=== PATIENT | female | born 1950 ===

== ENCOUNTER 2017-02-21 10:21 | Outpatient (CLI) | payer MEDICARE ==
--- NOTE | 2017-02-21 12:52 | Ultrasound Report ---
BILATERAL DIGITAL DIAGNOSTIC MAMMOGRAM with CAD and LEFT BREAST ULTRASOUND: 02/21/17 10:21:00 CLINICAL: Left breast lump. COMPARISON:[facility] 03/31/15 mammogram. FINDINGS: The breasts are heterogeneously dense, which may obscure small masses.A focal asymmetry with ill-defined margins at 6 o'clock in the left breast correlates with the palpable lump. No distinct mass. No suspicious calcifications. Ultrasound of the left breast was performed in the area of the palpable lump at 6 o'clock 10 cm from the nipple. An oval solid hypoechoic heterogeneous mass measures 2.1 x 1.5 x 0.9 cm. It is appears to arise from the skin in the skin is thickened (5 mm) in the area. Color Doppler demonstrates considerable blood flow within the mass. I examined the breast which shows some skin discoloration at 6 o'clock but no erythema. IMPRESSION: A probably benign sebaceous cyst at 6 o'clock left breast. The prominent blood flow by color Doppler suggests an inflamed sebaceous cyst. I instructed her to followup with her primary doctor and to return for a short-term followup ultrasound in three months. BI-RADS CATEGORY: 3 - - Probably Benign RECOMMENDATION: Three-month followup ultrasound and mammogram if needed. ACR BI-RADS MAMMOGRAPHIC CODES: 0 = Needs additional imaging evaluation; 1 = Negative; 2 = Benign; 3 = Probably benign; 4 = Suspicious; 5 = Malignant; 6 = Known biopsy-proven malignancy COMMENT: 1. Dense breast tissue, i.e., adenosis, fibrocystic changes, etc., may obscure an underlying neoplasm. 2. Approximately 10% of cancers are not detected with mammography. 3. A negative mammography report should not delay biopsy if a clinically suspicious mass is present. COMMENT: Patient follow-up letters are generated by our [employer] application.
== END 2017-02-21 10:22 | disposition home or self-care (01) ==
LOC: SPVWC 10:21
PROVIDERS: ATTEND Family Medicine
DX: N60.02 Solitary cyst of left breast (principal)
CPT/HCPCS: 76642; G0204; 77066